=== PATIENT | male | born 1970 | race Two or more races ===

== ENCOUNTER 2021-05-02 11:00 | Inpatient (IN) | payer OTHER ==
[~2021-05-02] VITALS: Ht 170.2 cm; Wt 119.3 kg
[2021-05-09] MEDS ORDERED: PERCOCET 5-3251 EACH PO (11:13)
== END 2021-05-09 13:16 | disposition home or self-care (01) | DRG 330 ==
LOC: O/R 05-07 06:00 → SURH 05-07 11:00
PROVIDERS: ADMIT Surgery; ATTEND Surgery
PROC: 0DTP4ZZ Resection of Rectum, Percutaneous Endoscopic Approach (ICD-10-PCS; 2021-05-07)
PROC: 07BC4ZZ Excision of Pelvis Lymphatic, Percutaneous Endoscopic Approach (ICD-10-PCS; 2021-05-07)
PROC: 0DTN4ZZ Resection of Sigmoid Colon, Percutaneous Endoscopic Approach (ICD-10-PCS; principal; 2021-05-07 16:45)
DX: C18.7 Malignant neoplasm of sigmoid colon (principal); B17.10 Acute hepatitis C without hepatic coma; D12.5 Benign neoplasm of sigmoid colon; R59.0 Localized enlarged lymph nodes; E66.8 Other obesity; E66.3 Overweight

== ENCOUNTER → 2022-01-08 | Outpatient (CLI) | payer OTHER ==
[~2022-01-08] MED LIST: PERCOCET 5-3251 EACH PO
== END | disposition home or self-care (01) ==
LOC: NUCLEAR 12-31 07:41
PROVIDERS: ATTEND Internal Medicine Hematology & Oncology
DX: C18.7 Malignant neoplasm of sigmoid colon (principal); Z85.6 Personal history of leukemia; Z88.0 Allergy status to penicillin; Z88.6 Allergy status to analgesic agent
CPT/HCPCS: 78815; A9552

== ENCOUNTER 2024-10-14 07:13 | Outpatient (CLI) | payer OTHER | END 2024-10-14 07:14 | disposition home or self-care (01) | LOC: NUCLEAR 07:13 | PROVIDERS: ATTEND Internal Medicine Hematology & Oncology | DX: C18.7 Malignant neoplasm of sigmoid colon (principal) ==